=== PATIENT | female | born 1985 | race African-American/Black ===

== ENCOUNTER 2016-09-20 10:21 | Inpatient (IN) ==
[2016-09-20] MEDS ORDERED: ONDANSETRON 4 MG/2 ML VIAL IV PRN ×2 (11:31→22:13)
[2016-09-20] MEDS ORDERED: PROMETHAZINE 25 MG/1 ML VIAL IM ONE (11:46)
[2016-09-20] MEDS ORDERED: LACTATED RINGERS 1,000 ML IV ONE (11:46)
[2016-09-20] MEDS ORDERED: ePHEDrine 50 MG/ML AMP IV PRN (11:46)
[2016-09-20] MEDS ORDERED: diphenhydrAMINE 50 MG/1 ML VIAL IV PRN ×2 (11:46)
[2016-09-20] MEDS ORDERED: FAMOTIDINE 20 MG/2 ML VIAL IV ONE (11:46)
[2016-09-20] MEDS ORDERED: hydrOXYzine HCL 25 MG/1 ML VIAL IM PRN (11:46)
[2016-09-20] MEDS ORDERED: LACTATED RINGERS 500 ML IV ONE (11:46)
[2016-09-20] MEDS ORDERED: CITRIC ACID/SODIUM CITRATE 30 ML UDCUP PO ONE (11:46)
[2016-09-20] MEDS: LACTATED RINGERS 1,000 ML IV SCH ×3 (12:01→22:05)
[2016-09-20] MEDS: LABETALOL 100 MG TABLET PO SCH (12:01)
[2016-09-20 12:15] LABS: Basophils % 0.4 % (0.0-0.8); Eosinophils # 0.1 10*3/uL (0.0-0.87); Eosinophils % 0.6 % (0.00-10.9); Hemoglobin 8.7 GM/DL (12.0-16.0); Immature Granulocytes % 1.1 %; Immature Granulocytes Absolute 0.09 #; Lymphocytes # 2.1 10*3/uL (1.4-4.0); Mean Corpuscular HGB Conc 32.2 GM/DL (32-36); Mean Corpuscular Hemoglobin 23 PG (27-34); Mean Corpuscular Volume 71.4 FL (87-102); Monocytes # 0.6 10*3/uL (0.11-0.8); NRBC # 0.05 10*3/uL; Neutrophils % 63.9 % (38.7-73.9); Platelet Count 260 T/CUMM (130-400); Red Blood Count 3.78 MC/CUMM (3.8-5.5); Red Cell Distribution Width 21.1 % (9.3-17.3); White Blood Count 7.9 T/CUMM (4-12)
[2016-09-20 12:24] LABS: INR 0.9; PT Patient Result 9.9 SECS; Partial Thromboplastin Time 28.8 SECS (0-40)
[2016-09-20 12:43] LABS: Albumin 2.2 G/DL (3.4-5.0); Bilirubin,Total 0.9 MG/DL (0.2-1.0); Calcium 8.8 MG/DL (8.5-10.1); Osmolality,Calculated 273.4 MOS/KG (273-304); Potassium 3.6 MMOL/L (3.5-5.1); Total Protein 6.9 G/DL (6.4-8.3); Uric Acid 5.5 MG/DL (2.6-6.0)
[2016-09-20] MEDS: fentaNYL 2 MCG/ROPIV 0.2% EPID 150 ML EPIDURAL SCH (12:58)
[2016-09-20 13:54] LABS: HIV Antigen/Antibody Result Nonreactive (Nonreactive); Hepatitis B Surface Ag Quant 0.26 Index; Hepatitis B Surface Ag Result Negative (Negative); Rubella Antibody IgG 42.4 IU/ML
[2016-09-20] MEDS ORDERED: OXYTOCIN/LR 20 UNIT/1,000 ML BAG IV SCH (16:00)
--- NOTE | 2016-09-20 21:50 | OB/GYN History & Physical ---
History of Present Illness Chief complaint: In for complaints of labor. History of present illness: Ms. Andrade is a 31 year old female 2 para 1. BETTIE 09/28/2016 estimated gestational age of 38 and 6 weeks who presents in active labor. The patient was previous section 1 for breech presentation and preeclampsia and desires a the risks and benefits of been thoroughly discussed with this patient including the potential for rupture and repeat section. She accepts her risk and is in agreement with plan of care. [place] and transfered her care to my office in her third trimester. She received routine care throughout and her course was uneventful. labs: She is B+, GBS culture negative, no other lab values are available at the time of this dictation. Home Medications Medication Instructions Recorded Confirmed Type Vits #90/Iron Fum/FA 1 tablet PO DAILY 09/02/16 09/20/16 History [ Formula Tablet] Allergies Allergy/AdvReac Type Severity Reaction Status Date / Time No Known Allergies Allergy Verified 09/20/16 11:03 12 point system: reviewed and no additional remarkable complaints except as stated Medical,Surgical,& Family Hx - Medical History Cardio: History of: Hypertension (started meds today) - Surgical History Reproductive Surgeries: Surgical HX of;: Section ( distress) - Family History Family History: Reports;: Family Diabetes (mother) Denies;: Family Anesthesia Reaction, Family Cancer, Family Heart Disease, Family Hematology, Family Hypertension, Family Psychiatric Problems, Family Stroke, Additional Family History - Social History Smoking Status: Never smoker Frequency of Alcohol Use: None Type of Drug Use: None Marital Status: Lives With:: Spouse Functional capacity: uses cane/walker Exam [employer]INE [employer] - Constitutional Vitals: Vital Signs Temp Pulse Resp BP Pulse Ox 09/20/16 20:00 97.6 F 65 18 150/83 09/20/16 16:00 97.5 F L 65 20 144/86 100 General appearance: mild distress - Antepartum / Post Antepartum Exam Cervix - Dilatation: 6 cm Effacement: 80% Station: -3 Rupture: Intact Presentation: Vertex Heart Rate: 120s-130s Vagina: Present: normal moisture Uterus exam: Present: enlarged (Estimated weight 6-1/2 pounds) Anus/Rectum: Present: normal perianal skin - Respiratory Respiratory exam: Present: clear to auscultation bilaterally - Cardiovascular Cardiovascular exam: Present: regular rate and rhythm - GI/Abdominal GI/Abdominal exam: Present: normal bowel sounds, soft - Extremities Exam Extremities exam: Present: normal inspection - Neurological Exam Neurological exam: Present: alert, oriented X3 - Psychiatric Psychiatric exam: Present: normal affect, normal mood - Skin Skin exam: Present: normal color, warm Assessment and Plan (1) Active labor at term Status: Acute Assessment and plan: Admit IV fluids Low-dose IV Pitocin per protocol if indicated Artificial rupture membranes when appropriate Epidural anesthesia Internal monitors if indicated Anticipate Current Visit: Yes (2) Previous section Status: Acute Current Visit: Yes Results - Labs CBC & BMP: 09/20/16 11:49 09/20/16 11:49
[2016-09-20] MEDS ORDERED: OXYTOCIN 10 UNIT/ML VIAL ONE (22:12)
[2016-09-20] MEDS ORDERED: RHO(D) IMMUNE GLOBULIN 300 MCG SYRINGE IM ONE (22:13)
[2016-09-20] MEDS ORDERED: OXYTOCIN/LR 20 UNIT/1,000 ML BAG IV ONE (22:13)
[2016-09-20] MEDS ORDERED: ACETAMINOPHEN 325 MG TABLET PO PRN (22:13)
[2016-09-20] MEDS ORDERED: MAGNESIUM HYDROXIDE SUSP 30 ML UDCUP PO PRN (22:13)
--- NOTE | 2016-09-20 22:13 | Event Note ---
Examination at approximately 10 p.m., cervical exam demonstrated 9 cm small amount of It very tiredness converging sidewalls. We will plan on a repeat section secondary to a failed vaginal . Risks benefits were thoroughly discussed and she is in full agreement. Anesthesia was notified
[2016-09-20] MEDS ORDERED: LACTATED RINGERS 1,000 ML IV SCH (22:30)
--- NOTE | 2016-09-20 22:58 | Operative Note ---
Date of procedure: 09/20/16 Procedure: Preoperative diagnosis: Failure to progress, failed Postoperative diagnosis: Same Anesthesia:[] Regional anesthesia Estimated blood loss: [] 300 Surgeon: Dr. Steen Findings: [] Occiput posterior, male 7 lbs. 4 oz., Apgars were 8 and 9, cord blood and cord gas was obtained Complications: None Procedure: Low transverse section The patient was taken to the operating suite heart tones were obtained prior to and after regional anesthesia was obtained. She was placed in supine position her abdomen was prepped and draped in usual manner for major abdominal surgery. Through an abdominal incision the skin, subcutaneous, fascial layer and peritoneal the abdomen was entered. The bladder flap was created and a low transverse incision was made.. Fluid was clear and normal amount X, Apgars, the placenta was delivered and sent to lab for further evaluation. Injected with intrauterine Pitocin. The first layer of the uterus was closed with #1 Vicryl in a continuous locking manner. Close to imbricate the first layer with #1 Vicryl. The peritoneum was approximated with #2-0 Vicryl.[] All the last sponges and instruments were accounted for -2.) #2-0 Vicryl. Fascia was approximated with #0-0 Maxon.. The skin was approximated with darshan. She tolerated procedure well and was taken to recovery room in stable condition. Surgeon / Physician: Jhonatan Steen Results - Labs CBC & BMP: 09/20/16 11:49 09/20/16 11:49 Discharge Plan - Discharge Medications No Action Vits #90/Iron Fum/FA [ Formula Tablet] 1 tablet PO DAILY - Follow Up or Referral - Forms/Instructions
[2016-09-20 23:01] LABS: Cord Arterial Blood HCO3 19.4 MMOL/L
[2016-09-20 23:04] LABS: Cord Venous Blood HCO3 19.7 MMOL/L; Cord Venous Blood PCO2 37.1 MMHG; Cord Venous Blood PO2 29.5 MMHG
--- NOTE | 2016-09-20 23:15 | Anesthesia Post-Op ---
Anesthesia Post OP - Post Ansesthetic Evaluation Patient seen in post op: Yes Resp: within normal limits CV: within normal limits Mental: within normal limits Temp: within normal limits [id number]: within normal limits Nausea and Vomiting: within normal limits Pain: within normal limits
[2016-09-20] MEDS ORDERED: fentaNYL 100 MCG/2 ML VIAL ONE (23:17)
[2016-09-20] MEDS ORDERED: MIDAZOLAM 2 MG/2 ML VIAL ONE (23:17)
[2016-09-21] MEDS: LABETALOL 100 MG TABLET PO SCH ×4 (01:15→20:35)
[2016-09-21] MEDS: BUTORPHANOL 2 MG/ML VIAL IV PRN ×2 (02:23→05:55)
[2016-09-21 08:45] LABS: Hematocrit 27.2 VOL% (35.7-47.0); Hemoglobin 8.6 GM/DL (12.0-16.0)
[2016-09-21] MEDS: LACTATED RINGERS 1,000 ML IV SCH ×3 (10:23→14:10)
[2016-09-21] MEDS: fentaNYL 2 MCG/ROPIV 0.2% EPID 150 ML EPIDURAL SCH (10:25)
[2016-09-21] MEDS: DOCUSATE SODIUM 100 MG CAPSULE PO SCH ×2 (10:25→20:35)
[2016-09-21] MEDS: MULTIVITAMIN (PRENATAL) TABLET PO SCH (10:25)
[2016-09-21] MEDS: IBUPROFEN 800 MG TABLET PO PRN (15:30)
[2016-09-21] MEDS: SIMETHICONE CHEW 80 MG TABLET PO PRN (20:35)
[2016-09-22] MEDS ORDERED: BISACODYL 10 MG SUPP RECTAL ONE (06:07)
[2016-09-22] MEDS ORDERED: BISACODYL 10 MG SUPP RECTAL PRN (06:08)
[2016-09-22] MEDS: SIMETHICONE CHEW 80 MG TABLET PO PRN (06:12)
[2016-09-22 09:10] VITALS: BP 131/92
[2016-09-22] MEDS: DOCUSATE SODIUM 100 MG CAPSULE PO SCH (10:11)
[2016-09-22] MEDS: LABETALOL 100 MG TABLET PO SCH (10:12)
[2016-09-22] MEDS: MULTIVITAMIN (PRENATAL) TABLET PO SCH (10:12)
--- NOTE | 2016-09-22 12:03 | Discharge Summary ---
Hospital Course - Hospital Course Hospital Course: Patient admitted on 20 September in active labor. She is a previous section and desire to . Risks benefits were thoroughly discussed with this patient since she was in full agreement. On admission she was approximately 4 cm plus dilated. She progressed to complete dilatation. And was noted to have Variable Deceleration and Noticeable caput. In light of these continued findings patient repair for repeat section secondary to failure to progress. Delivered without any complication had an unremarkable post operative course. And will be discharged with appropriate analgesic for her postoperative recovery. The benefits were thoroughly discussed and she is in full agreement. Diagnosis - Discharge Diagnosis (1) Active labor at term Status: Acute (2) Previous section Status: Acute Discharge Plan - Discharge Data Condition at Discharge: Stable Discharge Diet: advance to your usual diet Activity: resume usual activities as tolerated Hygiene: no restrictions Weight Bearing at Discharge: full weight bearing Contact your physician if you experience:: fever over 101 - Discharge Medications New Ibuprofen Tab [Motrin Tab] 800 mg PO Q8H PRN #30 tablet PRN Reason: Pain Severe (8-10) HYDROcodone/ACETAMIN 5-325 [[place] 5-325] 1 tablet PO Q6H PRN #30 tablet PRN Reason: Pain Moderate (4-7) No Action Vits #90/Iron Fum/FA [ Formula Tablet] 1 tablet PO DAILY - Follow Up or Referral - Forms/Instructions Exam - Constitutional Vitals: Period Temp Pulse Resp BP Sys/Tesfaye Pulse Ox Last 24 Hr 97.9 F-99.0 F 75-100 16-20 115-131/75-92 96-100 General appearance: no acute distress - Head Head exam: Present: normal inspection - Eye Eye exam: Present: EOMI Pupils: Present: DELIA - ENT ENT exam: Present: normal exam - Neck Neck exam: Present: normal inspection - Respiratory Respiratory exam: Present: clear to auscultation bilaterally - Cardiovascular Cardiovascular exam: Present: regular rate and rhythm - GI/Abdominal GI/Abdominal exam: Present: normal bowel sounds - Extremities Exam Extremities exam: Present: normal inspection - Back Exam Back exam: Present: normal inspection - Neurological Exam Neurological exam: Present: alert, oriented X3 - Psychiatric Psychiatric exam: Present: normal affect - Skin Skin exam: Present: normal color DS: Provider Date of admission: 09/20/16 15:07 Primary care physician: Caroline Moreno Attending physician on admission: Jhonatan Steen MD Consults: 09/20/16 11:31 Consult to Anesthesiology [CONS] Routine Consulting Provider: Reason for Anesthesiology: Epidural Consult Comment: Epidural for pain managment 09/20/16 22:14 Consult to President And Chief Commercial Officer [CONS] Routine Consult President And Chief Commercial Officer: Breast Feeding Discharging clinician: Jhonatan Steen MD
[2016-09-22] MEDS: IBUPROFEN 800 MG TABLET PO PRN (12:15)
== END 2016-09-22 13:45 | disposition home or self-care (01) | DRG 766 ==
LOC: N.LDOUT 10:21 → N.LD 10:23 → N.OB 09-21 15:15
PROVIDERS: ADMIT Obstetrics & Gynecology; ATTEND Obstetrics & Gynecology
PROC: LDCSECT (ICD-10-PCS; 2016-09-20 22:00)